=== PATIENT | male | born 1995 | race African-American/Black ===

== ENCOUNTER 2020-12-27 14:20 | Emergency (ER) | payer SELFPAY ==
[~2020-12-27] VITALS: Ht 188 cm; Wt 92.0 kg
[2020-12-27] MEDS ORDERED: ONDANSETRON HCL 4MG/2ML INJ IV STA (16:21)
[2020-12-27] MEDS ORDERED: MORPHINE SULFATE 4 MG/ML CPJ (NOT FOR IM USE) IV STA (16:21)
[2020-12-27] MEDS ORDERED: LIDOCAINE HCL/EPINEPHRINE 1%-EPI 1:100,000 10 ML VIAL IJ ONE (16:30)
[2020-12-27] MEDS ORDERED: TETANUS, DIPHTHERIA, PERTUSSIS VAC/PF 0.5ML (>7YR OLD) IM ONE (16:30)
[2020-12-27] MEDS ORDERED: SODIUM CHLORIDE 0.9% 1,000 ML IV ONE (16:30)
[2020-12-27] MEDS ORDERED: LIDOCAINE HCL/PF 1% 10 MG/ML 5ML VIAL IJ ONE ×2 (16:30→17:30)
[2020-12-27 17:00] LABS: BASOPHILS % 0.2 % (0.0-2.0); CLARITY URINE CLOUDY (CLEAR); COLOR URINE YELLOW (YELLOW); HEMATOCRIT. 42.6 % (42.0-52.0); HEMOGLOBIN. 14.5 g/dL (14.0-18.0); KETONES URINE NEGATIVE (NEGATIVE); LEUKOCYTE ESTERASE URINE NEGATIVE (NEGATIVE); LYMPHOCYTES % 7.9 % (20.0-50.0); MEAN CORPUSCULAR HEMOGLOBIN 29.1 pg (28.0-32.0); MEAN CORPUSCULAR VOLUME 85.6 fL (80.0-94.0); MEAN PLATELET VOLUME 8.2 fl (7.4-10.4); MONOCYTES % 4.2 % (2.0-8.0); NEUTROPHILS % 87.7 % (40.0-76.0); NITRITE URINE NEGATIVE (NEGATIVE); OCCULT BLOOD URINE 2+ (NEGATIVE); PH URINE 5.5 (4.5-8.0); PLATELET 190 x1000/uL (130-400); PROTEIN URINE 1+ (NEGATIVE); RED BLOOD CELL COUNT 4.97 mill/uL (4.7-6.1); UROBILINOGEN URINE 0.2 E.U./dL (0.2-1.0)
[2020-12-27 17:06] LABS: CHLORIDE 106 mEq/L (98-107)
[2020-12-27] MEDS ORDERED: MORPHINE SULFATE 2 MG/ML CPJ (NOT FOR IM USE) IV ONE (17:15)
[2020-12-27 17:19] LABS: INR 1.1; PARTIAL THROMBOPLASTIN TIME 26.1 sec (23.4-31.0); PROTHROMBIN TIME 11.4 sec (9.6-11.0)
[2020-12-27] MEDS ORDERED: CEFTRIAXONE 1 G PREMIX 50 ML IV ONE (17:30)
[2020-12-27 17:45] VITALS: BP 110/71
[2020-12-27] MEDS ORDERED: HYDR-4009 MT (18:42)
[2020-12-27] MEDS ORDERED: AMOX-424 MT (18:42)
== END 2020-12-27 19:08 | disposition home or self-care (01) ==
LOC: ER 14:20
DX: S31.31XA Laceration without foreign body of scrotum and testes, initial encounter (principal); W26.8XXA Contact with other sharp object(s), not elsewhere classified, initial encounter; Y93.89 Activity, other specified; Y92.89 Other specified places as the place of occurrence of the external cause
CPT/HCPCS: 36415; 76870; 80053; 81003; 85025; 85610; 85730; 86850; 86900; 86901; 90715; 93976; 96361; 96365; 96375; 96376; 99284; J0696; J2270; J2405; J3490; J7030; Z7610

== ENCOUNTER 2020-12-30 09:53 | Emergency (ER) | payer SELFPAY ==
[~2020-12-30] VITALS: Ht 188 cm; Wt 91.0 kg
[~2020-12-30 09:53] MED LIST: AMOX-424 MT; HYDR-4009 MT
[2020-12-30 09:54] VITALS: BP 118/73
== END 2020-12-30 11:00 | disposition home or self-care (01) ==
LOC: ER 09:53
DX: S31.31XD Laceration without foreign body of scrotum and testes, subsequent encounter (principal); X58.XXXD Exposure to other specified factors, subsequent encounter; F12.10 Cannabis abuse, uncomplicated; Z79.899 Other long term (current) drug therapy
CPT/HCPCS: 99283